=== PATIENT | female | born 1950 | race Caucasian/White ===

== ENCOUNTER → 2016-09-04 | Outpatient (CLI) | payer MEDICARE, OTHER | END | disposition home or self-care (01) | LOC: RAD.S 09:52 → EDSTATUS 10:00 → RAD.S 10:00 | DX: C34.31 Malignant neoplasm of lower lobe, right bronchus or lung (principal); C79.51 Secondary malignant neoplasm of bone; M89.9 Disorder of bone, unspecified; D73.89 Other diseases of spleen; R91.8 Other nonspecific abnormal finding of lung field ==

== ENCOUNTER → 2016-10-19 | Outpatient (CLI) | payer MEDICARE, OTHER | END | disposition home or self-care (01) | DX: C34.31 Malignant neoplasm of lower lobe, right bronchus or lung (principal); C79.51 Secondary malignant neoplasm of bone; R16.1 Splenomegaly, not elsewhere classified; R91.1 Solitary pulmonary nodule; I31.3 Pericardial effusion (noninflammatory) ==